=== PATIENT | female | born 1965 | race Caucasian/White ===

== ENCOUNTER 2019-09-06 07:03 | Day surgery (SDC) | payer OTHER ==
--- NOTE | 2019-08-30 12:51 | HP ---
DATE OF SURGERY: 09/06/2019 HISTORY OF PRESENT ILLNESS: The patient presented to the office in need of endoscopy. Denies any prior colonoscopy in the past. She denies GI signs and symptoms, denies rectal bleeding. The patient is adopted so she is unaware of her family history. The patient also has a history of breast cancer. She just finished chemo and radiation. She has not been cleared by her oncologist for port removal. PAST MEDICAL HISTORY: Breast cancer. PAST SURGICAL HISTORY: Tonsillectomy. Tubal ligation. Breast partial mastectomy. ALLERGIES: PENICILLIN G. MEDICATIONS: She takes a pill for her breast cancer. FAMILY HISTORY: Unknown. SOCIAL HISTORY: Negative. REVIEW OF SYSTEMS: CONSTITUTIONAL: No fever. No chills. CHEST: Denies shortness of breath. CVS: Denies chest pain. ABDOMEN: Denies abdominal pain, nausea, vomiting, diarrhea, constipation or rectal bleeding. : Denies dysuria or hematuria. PHYSICAL EXAMINATION: GENERAL: No acute distress. CHEST: Nonlabored. No shortness of breath. CVS: Regular rate and rhythm. ABDOMEN: Soft, nontender to palpation. EXTREMITIES: No edema. NEUROLOGIC: Alert. PSYCHIATRIC: Appropriate. IMPRESSION: Screening colonoscopy. History of breast cancer. PLAN: Colonoscopy. The patient stated that she has trouble with anesthesia and has trouble breathing with anesthesia. As dictated by Deann Simmons NP.
[2019-09-06] MEDS ORDERED: Lactated Ringers 1,000 ML IV ONE (07:25)
[2019-09-06] MEDS ORDERED: Lactated Ringers 1,000 ML IV SCH (07:30)
[2019-09-06] MEDS ORDERED: DIPRIVAN 200 MG/20 ML IV ONE ×2 (11:14→11:27)
[2019-09-06 12:24] VITALS: BP 136/98; PULSE 92
[2019-09-06 12:34] VITALS: O2SAT 95
[2019-09-06] MEDS ORDERED: Sodium Chloride 0.9% 10 ML FLUSH Syringe PORT FLUSH PRN (13:14)
--- NOTE | 2019-09-06 14:00 | OP ---
SURGERY DATE/TIME: 09/06/2019 1122 PREOPERATIVE DIAGNOSIS: A patient with breast cancer requiring colonoscopy screening. She has not had screening to date. POSTOPERATIVE DIAGNOSIS: Normal. PROCEDURE: Colonoscopy complete to cecum. SURGEON: Aureliano Gonzalez M.D. ANESTHESIA: MAC. COMPLICATIONS: None. CONDITION: Stable. PREP: Excellent. WITHDRAWAL TIME: About six minutes. INDICATION: A patient requiring evaluation. DESCRIPTION OF PROCEDURE: Taken to endoscopy. Anal digital examination satisfactory. Scope introduced. Scope advanced to the cecum. On circumferential withdrawal no mucosal lesions were noted. The scope was placed back up to the cecum. Circumferential withdrawal no mucosal lesions were noted. PLAN: Since she does have a history of breast cancer, we will suggest a five year follow up.
== END 2019-09-06 12:30 | disposition home or self-care (01) ==
LOC: SDC 07:03
PROVIDERS: ATTEND Surgery
DX: Z12.11 Encounter for screening for malignant neoplasm of colon (principal); C50.912 Malignant neoplasm of unspecified site of left female breast; Z79.899 Other long term (current) drug therapy
CPT/HCPCS: J1642; J2704